=== PATIENT | female | born 1975 | race Hispanic/Latino ===

== ENCOUNTER 2018-09-10 10:37 | Inpatient (IN) | payer OTHER ==
[2018-09-10 08:46] VITALS: BMI 31.9
[2018-09-10] MEDS ORDERED: Midazolam 2 MG/2 ML VIAL ONE (11:43)
[2018-09-10] MEDS ORDERED: Amiodarone 150mg/3 ml vial ONE (11:46)
[2018-09-10] MEDS ORDERED: Morphine 4 MG/ML VIAL ONE (12:10)
[2018-09-10] MEDS ORDERED: Iodixanol 320 MG/ML 100 ML BOTTLE IV ONE (12:14)
[2018-09-10] MEDS ORDERED: Eptifibatide 20 mg/10mL Inj IVP ONE (12:17)
--- NOTE | 2018-09-10 13:54 | CP.PCM.CON ---
History of Present Illness - History of Present Illness History of Present Illness: 42 y/o female with PMHx OF renal transplant, HTN, hypercholesterolemia, h/o MTHFR gene mutation presents to the ED with c/o chest pain associated with nausea/vomitting. Patient was taken to laborer cement gun placing for PCI s/p EARLE stent placement. Please see cath report for PCI/contrast use. Post cath, patient transferred to ICU for observation. Patient is chest pain free with no nausea/vomitting. Review of Systems - Review of Systems All systems: reviewed and no additional remarkable complaints except Past Patient History - Past Social History Smoking Status: Never Smoked - CARDIAC Hx Hypertension: Yes - RENAL Other/Comment: kidney transplant - PSYCHIATRIC Hx Substance Use: No - SURGICAL HISTORY Hx Tonsillectomy: Yes - ANESTHESIA Hx Anesthesia: Yes Hx Anesthesia Reactions: No Meds Allergies/Adverse Reactions: Allergies Allergy/AdvReac Type Severity Reaction Status Date / Time ampicillin AdvReac VOMITING Verified 02/26/18 21:48 nitroglycerin AdvReac FEVER Verified 02/26/18 21:48 [From Nitroglyn] - Medications Medications: Current Medications Acetylcysteine (Acetylcysteine 20%) 1,200 ml PO Q12H [facility] Stop: 09/12/18 02:01 Atovaquone (Mepron) 1,500 mg PO DAILY [facility]; Protocol Carvedilol (Coreg) 25 mg PO BID [facility] Eptifibatide (Integrilin) 75 mg in 100 mls @ 6.749 mls/hr IV .[id number] [facility] Stop: 09/11/18 07:01 Sodium Chloride (Sodium Chloride 0.9%) 1,000 mls @ 100 mls/hr IV .Q10H [facility] Losartan Potassium (Cozaar) 50 mg PO BID [facility] Mycophenolate Sodium (Myfortic Dr) 720 mg PO BID [facility] Pantoprazole Sodium (Protonix Ec Tab) 40 mg PO DAILY [facility] Prednisone (Prednisone) 5 mg PO DAILY [facility] Rosuvastatin Calcium (Crestor) 20 mg PO HS [facility] Sertraline HCl (Zoloft) 12.5 mg PO DAILY [facility] Tacrolimus (Prograf) 1 mg PO BID [facility] Physical Exam - Head Exam Head Exam: ATRAUMATIC, NORMAL INSPECTION - Eye Exam Eye Exam: EOMI Pupil Exam: PERRL - ENT Exam ENT Exam: Mucous Membranes Moist - Respiratory Exam Respiratory Exam: Clear to Auscultation Bilateral, NORMAL BREATHING PATTERN - Cardiovascular Exam Cardiovascular Exam: REGULAR RHYTHM, +S1, +S2 - GI/Abdominal Exam GI & Abdominal Exam: Normal Bowel Sounds, Soft. absent: Tenderness - Extremities Exam Extremities exam: Positive for: normal inspection. Negative for: pedal edema Results - Labs Result Diagrams: 09/11/18 06:05 09/11/18 06:05 Assessment & Plan - Assessment and Plan (Free Text) Assessment: CAD/Myocardial infarction: s/p PCI, continue DAPT and IV integrilin -Renal transplant: restart home medicatoins -HTN: hold losartan for 24 hrs post IV contrast -continue prednisone/mycophenolate/prograf -continue protonix -oral muocmyst for prophylaxis for contrast induced nephropathy -IVF for hydration -HTN: use cardened IV for first 24 hours -EF ~45% - Date & Time Date: 09/10/18 Time: 13:56
[2018-09-10] MEDS ORDERED: Acetylcysteine 20% Inhal Soln (4ml) PO SCH (14:00)
[2018-09-10] MEDS: Eptifibatide 0.75 mg/ml 75 MG/100 ML BOTTLE IV SCH ×2 (14:00→22:29)
[2018-09-10] MEDS ORDERED: Alum-Mag Hydrox-Simethicone Susp (30 mL) PO ONE (14:20)
[2018-09-10] MEDS ORDERED: HYDROmorphone 0.5 mg/0.5 ml ISec IVP PRN (14:24)
[2018-09-10] MEDS ORDERED: Mycophenolic Acid DR 360 mg Tab PO ONE (14:30)
[2018-09-10] MEDS: Pantoprazole 40 mg EC Tab PO SCH (14:32)
[2018-09-10] MEDS: Atovaquone 750 mg/5 ml Susp UD PO SCH (14:35)
[2018-09-10] MEDS: Acetylcysteine 20% Inhal Soln (4ml) PO SCH (14:50)
[2018-09-10] MEDS: Sodium Chloride 0.9% 1,000 ML IV SCH (14:52)
[2018-09-10] MEDS ORDERED: Morphine 4 MG/ML VIAL IVP PRN (15:30)
[2018-09-10] MEDS: Mycophenolic Acid DR 360 mg Tab PO SCH (18:06)
--- NOTE | 2018-09-10 18:50 | CP.PCM.HP ---
Past Patient History - Past Social History Smoking Status: Never Smoked - CARDIAC Hx Hypertension: Yes - RENAL Other/Comment: kidney transplant - PSYCHIATRIC Hx Substance Use: No - SURGICAL HISTORY Hx Tonsillectomy: Yes - ANESTHESIA Hx Anesthesia: Yes Hx Anesthesia Reactions: No Meds Allergies/Adverse Reactions: Allergies Allergy/AdvReac Type Severity Reaction Status Date / Time ampicillin AdvReac VOMITING Verified 02/26/18 21:48 nitroglycerin AdvReac FEVER Verified 02/26/18 21:48 [From Nitroglyn] Physical Exam - Constitutional Appears: Well - Head Exam Head Exam: ATRAUMATIC, NORMAL INSPECTION, NORMOCEPHALIC - Eye Exam Eye Exam: EOMI, Normal appearance, PERRL Pupil Exam: NORMAL ACCOMODATION, PERRL - ENT Exam ENT Exam: Mucous Membranes Moist, Normal Exam - Neck Exam Neck exam: Positive for: Normal Inspection - Respiratory Exam Respiratory Exam: Decreased Breath Sounds - Cardiovascular Exam Cardiovascular Exam: REGULAR RHYTHM, +S1, +S2 - GI/Abdominal Exam GI & Abdominal Exam: Diminished Bowel Sounds, Soft - Rectal Exam Rectal Exam: Deferred Results - Vital Signs Recent Vital Signs: Last Vital Signs Temp 98.2 F 09/10/18 16:00 Pulse Resp BP 149/97 H 09/10/18 18:04 Pulse Ox 100 09/10/18 13:25 - Labs Labs: Laboratory Results - last 24 hr 09/10/18 15:21 Total Creatine Kinase 4596 H CK-MB (Mass) 142 H Troponin I 162.0000 H*
[2018-09-10] MEDS ORDERED: Labetalol 25mg/5ml Syringe IVP STA (19:07)
[2018-09-10] MEDS ORDERED: Labetalol 5mg/ml (4ml) IVP STA (19:28)
[2018-09-10] MEDS: niCARdipine IV 25 MG in Sodium Chloride 0.9% 240 ML IV PRN (20:26)
[2018-09-11] MEDS ORDERED: Alum-Mag Hydrox-Simethicone Susp (30 mL) PO STA (01:08)
[2018-09-11] MEDS: Sodium Chloride 0.9% 1,000 ML IV SCH ×3 (01:16→10:27)
[2018-09-11] MEDS: niCARdipine IV 25 MG in Sodium Chloride 0.9% 240 ML IV PRN (01:20)
[2018-09-11] MEDS: Acetylcysteine 20% Inhal Soln (4ml) PO SCH ×2 (02:45→14:23)
[2018-09-11] MEDS: Eptifibatide 0.75 mg/ml 75 MG/100 ML BOTTLE IV SCH (04:00)
[2018-09-11 06:10] LABS: BASO # 0.1 K/uL (0.0-0.2); BASO % 0.4 % (0.0-2.0); EOS % 0.1 % (0.0-4.0); LYMPH % 6.4 % (20.0-40.0); MEAN CELL VOLUME 87.4 fL (81.0-99.0); MEAN CORPUSCULAR HEMOGLOBIN 29.6 pg (27.0-31.0); MEAN CORPUSCULAR HGB CONC 33.9 g/dL (33.0-37.0); MEAN PLATELET VOLUME 8.1 fL (7.2-11.7); MONO % 6.8 % (0.0-10.0); NEUT # 13.2 K/uL (1.8-7.0); NEUT % 86.3 % (50.0-75.0); PLATELET COUNT 306 K/uL (130-400); RBC 3.72 Mil/uL (3.80-5.20); RED CELL DISTRIBUTION WIDTH 13.8 % (11.5-14.5); WHITE BLOOD COUNT 15.3 K/uL (4.8-10.8)
[2018-09-11 06:36] LABS: ALB/GLOB RATIO 1.4 (1.0-2.1); ALBUMIN 3.4 g/dL (3.5-5.0); ALT/SGPT 63 U/L (9-52); AST/SGOT 379 U/L (14-36); BLOOD UREA NITROGEN 13 mg/dL (7-17); CALCIUM 7.2 mg/dl (8.6-10.4); GFR NON-AFRICAN AMERICAN > 60
[2018-09-11] MEDS: Magnesium Sulfate 1 gm in D5W 1 GM/100 ML BAG IVPB SCH ×2 (07:58→08:38)
[2018-09-11] MEDS: Pantoprazole 40 mg EC Tab PO SCH ×2 (07:59→10:01)
[2018-09-11 08:15] LABS: BANDS 1 % (0-2); LYMPHOCYTE 6 % (20-40); MONOCYTE 8 % (0-10); NEUTROPHIL 85 % (50-75); TOTAL CELLS COUNTED 100
[2018-09-11 08:16] LABS: ANISOCYTOSIS SLIGHT; HYPOCHROMIC SLIGHT; PLATELET ESTIMATE NORMAL (NORMAL); POLYCHROMIC SLIGHT
[2018-09-11 08:17] LABS: TOXIC GRANULATION PRESENT
[2018-09-11] MEDS ORDERED: SERTRALINE 12.5 MG PO SCH (10:00)
[2018-09-11] MEDS: Atovaquone 750 mg/5 ml Susp UD PO SCH (10:02)
[2018-09-11] MEDS: Mycophenolic Acid DR 360 mg Tab PO SCH ×2 (10:03→18:13)
--- NOTE | 2018-09-11 10:26 | CP.PCM.PN ---
Subjective - Date & Time of Evaluation Date of Evaluation: 09/11/18 Time of Evaluation: 10:25 - Subjective Subjective: Patient admitted to ICU post PCI Objective - Vital Signs/Intake and Output Vital Signs (last 24 hours): Temp Pulse Resp BP Pulse Ox 98.8 F 91 H 23 116/79 98 09/11/18 06:00 09/11/18 07:00 09/11/18 07:00 09/11/18 07:59 09/11/18 07:00 Intake and Output: 09/11/18 09/11/18 06:59 18:59 Intake Total 2634 107 Output Total 1150 0 Balance 1484 107 - Medications Medications: Current Medications Acetylcysteine (Acetylcysteine 20%) 6 ml PO Q12H [facility] Stop: 09/12/18 02:46 Last Admin: 09/11/18 02:45 Dose: 6 ml Atovaquone (Mepron) 1,500 mg PO DAILY [facility]; Protocol Last Admin: 09/11/18 10:02 Dose: 1,500 mg Carvedilol (Coreg) 25 mg PO BID [facility] Last Admin: 09/11/18 10:02 Dose: Not Given Enoxaparin Sodium (Lovenox) 40 mg SC DAILY [facility] Sodium Chloride (Sodium Chloride 0.9%) 1,000 mls @ 50 mls/hr IV .Q20H [facility] Losartan Potassium (Cozaar) 50 mg PO BID [facility] Last Admin: 09/11/18 10:04 Dose: 50 mg Mycophenolate Sodium (Myfortic Dr) 720 mg PO BID [facility] Last Admin: 09/11/18 10:03 Dose: 720 mg Pantoprazole Sodium (Protonix Ec Tab) 40 mg PO DAILY [facility] Last Admin: 09/11/18 10:01 Dose: Not Given Prednisone (Prednisone Tab) 5 mg PO DAILY [facility] Last Admin: 09/11/18 10:03 Dose: 5 mg Rosuvastatin Calcium (Crestor) 20 mg PO HS [facility] Last Admin: 09/10/18 22:20 Dose: 20 mg Sertraline HCl (Zoloft) 12.5 mg PO DAILY [facility] Tacrolimus (Prograf Cap) 1 mg PO Q12 [facility] Last Admin: 09/11/18 10:03 Dose: 1 mg Ticagrelor (Brilinta) 90 mg PO BID [facility] Last Admin: 09/11/18 10:03 Dose: 90 mg - Labs Labs: 09/11/18 06:05 09/11/18 06:05 - Head Exam Head Exam: ATRAUMATIC, NORMAL INSPECTION - Cardiovascular Exam Cardiovascular Exam: REGULAR RHYTHM, +S1, +S2 - GI/Abdominal Exam GI & Abdominal Exam: Normal Bowel Sounds - Extremities Exam Extremities Exam: Full ROM, Normal Inspection - Neurological Exam Neurological Exam: Alert, Awake, CN II-XII Intact Assessment and Plan - Assessment and Plan (Free Text) Assessment: CAD/Myocardial infarction: s/p PCI, continue DAPT, statin and AV donny sheldon -Renal transplant: restart home medicatoins -HTN: restart losartan -continue prednisone/mycophenolate/prograf -continue protonix -oral muocmyst for prophylaxis for contrast induced nephropathy with IVF -echo pending -Patient remains hemodynamically stable
[2018-09-11] MEDS: Enoxaparin 40 mg Syringe SC SCH (10:27)
[2018-09-11] MEDS ORDERED: Alum-Mag Hydrox-Simethicone Susp (30 mL) PO PRN (10:51)
--- NOTE | 2018-09-11 19:37 | CP.PCM.PN ---
Subjective - Date & Time of Evaluation Date of Evaluation: 09/11/18 Time of Evaluation: 12:00 - Subjective Subjective: clinically same Objective - Vital Signs/Intake and Output Vital Signs (last 24 hours): Temp Pulse Resp BP Pulse Ox 98.8 F 95 H 13 116/78 99 09/11/18 16:00 09/11/18 18:15 09/11/18 18:15 09/11/18 18:13 09/11/18 18:15 Intake and Output: 09/11/18 09/12/18 18:59 06:59 Intake Total 1657 50 Output Total 950 300 Balance 707 -250 - Medications Medications: Current Medications Acetylcysteine (Acetylcysteine 20%) 6 ml PO Q12H [facility] Stop: 09/12/18 02:46 Last Admin: 09/11/18 14:23 Dose: 6 ml Al Hydrox/Mg Hydrox/Simethicone (Maalox Plus 30 Ml) 30 ml PO Q6H PRN PRN Reason: Indigestion / Heartburn Carvedilol (Coreg) 25 mg PO BID [facility] Last Admin: 09/11/18 18:13 Dose: 25 mg Enoxaparin Sodium (Lovenox) 40 mg SC DAILY [facility] Last Admin: 09/11/18 10:27 Dose: 40 mg Sodium Chloride (Sodium Chloride 0.9%) 1,000 mls @ 50 mls/hr IV .Q20H [facility] Last Admin: 09/11/18 10:27 Dose: 50 mls/hr Losartan Potassium (Cozaar) 50 mg PO BID [facility] Last Admin: 09/11/18 10:04 Dose: 50 mg Mycophenolate Sodium (Myfortic Dr) 720 mg PO BID [facility] Last Admin: 09/11/18 18:13 Dose: 720 mg Pantoprazole Sodium (Protonix Ec Tab) 40 mg PO DAILY [facility] Last Admin: 09/11/18 10:01 Dose: Not Given Prednisone (Prednisone Tab) 5 mg PO DAILY [facility] Last Admin: 09/11/18 10:03 Dose: 5 mg Rosuvastatin Calcium (Crestor) 20 mg PO HS [facility] Last Admin: 09/10/18 22:20 Dose: 20 mg Sertraline HCl (Zoloft) 12.5 mg PO HS [facility] Tacrolimus (Prograf Cap) 1 mg PO Q12 [facility] Last Admin: 09/11/18 10:03 Dose: 1 mg Ticagrelor (Brilinta) 90 mg PO BID [facility] Last Admin: 09/11/18 18:13 Dose: 90 mg - Labs Labs: 09/11/18 06:05 09/11/18 06:05 - Constitutional Appears: Well - Head Exam Head Exam: ATRAUMATIC, NORMAL INSPECTION, NORMOCEPHALIC - Eye Exam Eye Exam: EOMI, Normal appearance, PERRL Pupil Exam: NORMAL ACCOMODATION, PERRL - ENT Exam ENT Exam: Mucous Membranes Moist, Normal Exam - Neck Exam Neck Exam: Full ROM, Normal Inspection. absent: Lymphadenopathy - Respiratory Exam Respiratory Exam: Decreased Breath Sounds - Cardiovascular Exam Cardiovascular Exam: REGULAR RHYTHM, +S1, +S2 - GI/Abdominal Exam GI & Abdominal Exam: Soft, Diminished Bowel Sounds - Rectal Exam Rectal Exam: Deferred
[2018-09-11] MEDS: SERTRALINE 12.5 MG PO SCH (21:10)
[2018-09-12] MEDS: Acetylcysteine 20% Inhal Soln (4ml) PO SCH (02:17)
[2018-09-12 06:28] LABS: BASO % 0.2 % (0.0-2.0); EOS % 0.3 % (0.0-4.0); HEMOGLOBIN 9.6 g/dL (11.0-16.0); LYMPH # 1.1 K/uL (1.0-4.3); LYMPH % 11.3 % (20.0-40.0); MEAN CELL VOLUME 86.4 fL (81.0-99.0); MEAN CORPUSCULAR HEMOGLOBIN 29.8 pg (27.0-31.0); MEAN CORPUSCULAR HGB CONC 34.5 g/dL (33.0-37.0); MEAN PLATELET VOLUME 8.1 fL (7.2-11.7); MONO # 0.9 K/uL (0.0-0.8); MONO % 8.7 % (0.0-10.0); NEUT % 79.5 % (50.0-75.0); RBC 3.23 Mil/uL (3.80-5.20); RED CELL DISTRIBUTION WIDTH 14.4 % (11.5-14.5); WHITE BLOOD COUNT 10.1 K/uL (4.8-10.8)
[2018-09-12] MEDS: Sodium Chloride 0.9% 1,000 ML IV SCH (06:30)
[2018-09-12 06:31] LABS: ALB/GLOB RATIO 1.4 (1.0-2.1); ALBUMIN 3.1 g/dL (3.5-5.0); ALT/SGPT 44 U/L (9-52); AST/SGOT 140 U/L (14-36); BLOOD UREA NITROGEN 14 mg/dL (7-17); CALCIUM 7.6 mg/dl (8.6-10.4); GFR NON-AFRICAN AMERICAN > 60
[2018-09-12] MEDS: Pantoprazole 40 mg EC Tab PO SCH (09:19)
[2018-09-12] MEDS: Enoxaparin 40 mg Syringe SC SCH (09:20)
[2018-09-12] MEDS: Mycophenolic Acid DR 360 mg Tab PO SCH ×2 (09:20→17:02)
--- NOTE | 2018-09-12 12:37 | CP.PCM.PN ---
Subjective - Date & Time of Evaluation Date of Evaluation: 09/12/18 Time of Evaluation: 13:00 - Subjective Subjective: clinically same Objective - Vital Signs/Intake and Output Vital Signs (last 24 hours): Temp Pulse Resp BP Pulse Ox 97.7 F 95 H 15 112/67 98 09/12/18 08:00 09/12/18 10:08 09/12/18 10:08 09/12/18 09:21 09/12/18 09:20 Intake and Output: 09/12/18 09/12/18 06:59 18:59 Intake Total 1020 400 Output Total 1200 500 Balance -180 -100 - Medications Medications: Current Medications Al Hydrox/Mg Hydrox/Simethicone (Maalox Plus 30 Ml) 30 ml PO Q6H PRN PRN Reason: Indigestion / Heartburn Carvedilol (Coreg) 25 mg PO BID [facility] Last Admin: 09/12/18 09:21 Dose: 25 mg Enoxaparin Sodium (Lovenox) 40 mg SC DAILY [facility] Last Admin: 09/12/18 09:20 Dose: 40 mg Sodium Chloride (Sodium Chloride 0.9%) 1,000 mls @ 50 mls/hr IV .Q20H [facility] Last Admin: 09/12/18 06:30 Dose: Not Given Losartan Potassium (Cozaar) 50 mg PO BID [facility] Last Admin: 09/12/18 09:21 Dose: 50 mg Mycophenolate Sodium (Myfortic Dr) 720 mg PO BID [facility] Last Admin: 09/12/18 09:20 Dose: 720 mg Pantoprazole Sodium (Protonix Ec Tab) 40 mg PO DAILY [facility] Last Admin: 09/12/18 09:19 Dose: 40 mg Prednisone (Prednisone Tab) 5 mg PO DAILY [facility] Last Admin: 09/12/18 09:22 Dose: 5 mg Rosuvastatin Calcium (Crestor) 20 mg PO HS [facility] Last Admin: 09/11/18 21:10 Dose: 20 mg Sertraline HCl (Zoloft) 12.5 mg PO HS [facility] Last Admin: 09/11/18 21:10 Dose: 12.5 mg Tacrolimus (Prograf Cap) 1 mg PO Q12 [facility] Last Admin: 09/12/18 09:22 Dose: 1 mg Ticagrelor (Brilinta) 90 mg PO BID [facility] Last Admin: 09/12/18 09:21 Dose: 90 mg - Labs Labs: 09/12/18 06:10 09/12/18 06:09 - Constitutional Appears: Well - Head Exam Head Exam: ATRAUMATIC, NORMAL INSPECTION, NORMOCEPHALIC - Eye Exam Eye Exam: EOMI, Normal appearance, PERRL Pupil Exam: NORMAL ACCOMODATION, PERRL - ENT Exam ENT Exam: Mucous Membranes Moist, Normal Exam - Neck Exam Neck Exam: Full ROM, Normal Inspection. absent: Lymphadenopathy - Respiratory Exam Respiratory Exam: Decreased Breath Sounds - Cardiovascular Exam Cardiovascular Exam: REGULAR RHYTHM, +S1, +S2 - GI/Abdominal Exam GI & Abdominal Exam: Soft, Diminished Bowel Sounds - Rectal Exam Rectal Exam: Deferred
--- NOTE | 2018-09-12 13:27 | CARD ---
APPROVED REPORT Date of service: 09/10/2018 EKG Measurement Heart [id number] <Conclusion> Normal sinus rhythm ST elevation, consider lateral injury or acute infarct ACUTE MT / STEMI Abnormal ECG
--- NOTE | 2018-09-12 13:43 | CP.PCM.CON ---
History of Present Illness - History of Present Illness History of Present Illness: 42 y/o female with PMHx OF renal transplant, HTN, hypercholesterolemia, h/o MTHFR gene mutation presents to the ED with c/o chest pain associated with nausea/vomitting. Patient was taken to operations label clerk for PCI s/p EARLE stent placement. Please see cath report for PCI/contrast use. Post cath, patient transferred to ICU for observation. Patient is chest pain free with no nausea/vomitting. c/o feeling "winded at times" good uop DDRtx 2008 [facility], baseline creat < 1. hx of HUS, second renal transplant home transplant meds- myfortic prednisone and tacrolimus Review of Systems - Review of Systems All systems: reviewed and no additional remarkable complaints except (as per hpi) Past Patient History - Past Medical History & Family History Past Medical History?: Yes - Past Social History Smoking Status: Never Smoked - CARDIAC Hx Hypertension: Yes - PULMONARY Hx Respiratory Disorders: No - NEUROLOGICAL Hx Neurological Disorder: No - HEENT Hx HEENT Problems: No - RENAL Other/Comment: kidney transplant - ENDOCRINE/METABOLIC Other/Comment: HX.PARATHYROIDECTOMY - HEMATOLOGICAL/ONCOLOGICAL Hx Blood Disorders: Yes Other/Comment: HX.L LEG DVT - INTEGUMENTARY Hx Dermatological Problems: No - MUSCULOSKELETAL/RHEUMATOLOGICAL Hx Musculoskeletal Disorders: No Hx Falls: No - GASTROINTESTINAL Hx Gastrointestinal Disorders: No - GENITOURINARY/GYNECOLOGICAL Hx Genitourinary Disorders: No - PSYCHIATRIC Hx Substance Use: No - SURGICAL HISTORY Hx Tonsillectomy: Yes - ANESTHESIA Hx Anesthesia: Yes Hx Anesthesia Reactions: No Meds Allergies/Adverse Reactions: Allergies Allergy/AdvReac Type Severity Reaction Status Date / Time ampicillin AdvReac VOMITING Verified 02/26/18 21:48 nitroglycerin AdvReac FEVER Verified 02/26/18 21:48 [From Nitroglyn] - Medications Medications: Current Medications Al Hydrox/Mg Hydrox/Simethicone (Maalox Plus 30 Ml) 30 ml PO Q6H PRN PRN Reason: Indigestion / Heartburn Carvedilol (Coreg) 25 mg PO BID [facility] Last Admin: 09/12/18 09:21 Dose: 25 mg Enoxaparin Sodium (Lovenox) 40 mg SC DAILY [facility] Last Admin: 09/12/18 09:20 Dose: 40 mg Sodium Chloride (Sodium Chloride 0.9%) 1,000 mls @ 50 mls/hr IV .Q20H [facility] Last Admin: 09/12/18 06:30 Dose: Not Given Mycophenolate Sodium (Myfortic Dr) 720 mg PO BID [facility] Last Admin: 09/12/18 09:20 Dose: 720 mg Pantoprazole Sodium (Protonix Ec Tab) 40 mg PO DAILY [facility] Last Admin: 09/12/18 09:19 Dose: 40 mg Prednisone (Prednisone Tab) 5 mg PO DAILY [facility] Last Admin: 09/12/18 09:22 Dose: 5 mg Rosuvastatin Calcium (Crestor) 20 mg PO HS [facility] Last Admin: 09/11/18 21:10 Dose: 20 mg Sertraline HCl (Zoloft) 12.5 mg PO HS [facility] Last Admin: 09/11/18 21:10 Dose: 12.5 mg Tacrolimus (Prograf Cap) 1 mg PO Q12 [facility] Last Admin: 09/12/18 09:22 Dose: 1 mg Ticagrelor (Brilinta) 90 mg PO BID [facility] Last Admin: 09/12/18 09:21 Dose: 90 mg Physical Exam - Constitutional Appears: Non-toxic, No Acute Distress - Head Exam Head Exam: NORMAL INSPECTION, NORMOCEPHALIC - Eye Exam Eye Exam: Normal appearance, PERRL - ENT Exam ENT Exam: Mucous Membranes Moist, Normal Exam - Neck Exam Neck exam: Positive for: Normal Inspection - Respiratory Exam Respiratory Exam: Clear to Auscultation Bilateral, NORMAL BREATHING PATTERN - Cardiovascular Exam Cardiovascular Exam: REGULAR RHYTHM, RRR - GI/Abdominal Exam GI & Abdominal Exam: Normal Bowel Sounds, Soft - Extremities Exam Extremities exam: Positive for: full ROM, normal inspection - Neurological Exam Neurological exam: Alert, Oriented x3 - Psychiatric Exam Psychiatric exam: Normal Affect, Normal Mood - Skin Skin Exam: Dry, Intact Results - Vital Signs Recent Vital Signs: Last Vital Signs Temp 97.7 F 09/12/18 08:00 Pulse 95 H 09/12/18 10:08 Resp 15 09/12/18 10:08 BP 112/67 09/12/18 09:21 Pulse Ox 98 09/12/18 09:20 - Labs Result Diagrams: 09/12/18 06:10 09/12/18 06:09 Labs: Laboratory Results - last 24 hr 09/12/18 09/12/18 06:09 06:10 WBC 10.1 RBC 3.23 L Hgb 9.6 L Hct 27.9 L MCV 86.4 MCH 29.8 MCHC 34.5 RDW 14.4 Plt Count 261 MPV 8.1 Neut % (Auto) 79.5 H Lymph % (Auto) 11.3 L [place] % (Auto) 8.7 Eos % (Auto) 0.3 Baso % (Auto) 0.2 Neut # (Auto) 8.0 H Lymph # (Auto) 1.1 [place] # (Auto) 0.9 H Eos # (Auto) 0.0 Baso # (Auto) 0.0 Sodium 135 Potassium 3.6 Chloride 102 Carbon Dioxide 27 Anion Gap 9 L BUN 14 Creatinine 1.0 Est GFR ( Amer) > 60 Est GFR (Non-Af Amer) > 60 Random Glucose 159 H D Calcium 7.6 L Phosphorus 2.4 L Magnesium 2.5 H Total Bilirubin 0.8 AST 140 H D ALT 44 Alkaline Phosphatase 60 Total Protein 5.3 L Albumin 3.1 L Globulin 2.2 Albumin/Globulin Ratio 1.4 Assessment & Plan (1) Renal transplant recipient Status: Acute (2) Hypertension Status: Acute (3) STEMI (ST elevation myocardial infarction) Status: Acute - Assessment and Plan (Free Text) Assessment: renal function stable hold off losartan for another day and then may restart if renal function stable maintain immunosuppression gentle iv fluids check tacrolimus level cardiac management
--- NOTE | 2018-09-12 16:32 | CARD ---
APPROVED REPORT Date of service: 09/12/2018 EXAM: Two-dimensional and M-mode echocardiogram with Doppler and color Doppler. INDICATION Pericardial Effusion RISK FACTORS Hypertension 2D DIMENSIONS IVSd1.5 (0.7-1.1cm)LVDd3.4 (3.9-5.9cm) PWd1.3 (0.7-1.1cm)LA [id number] (18-58mL) LVDs1.9 (2.5-4.0cm)FS (%) 44.4 % LVEF (%)76.8 (>50%)LVEF (Martins's)70.11 % M-Mode DIMENSIONS Left Atrium (MM)3.38 (2.5-4.0cm)IVSd1.20 (0.7-1.1cm) Aortic Root3.15 (2.2-3.7cm)LVDd4.37 (4.0-5.6cm) Aortic Cusp Exc.1.72 (1.5-2.0cm)PWd1.17 (0.7-1.1cm) FS (%) 41 %LVDs2.57 (2.0-3.8cm) LVEF (%)72 (>50%) Mitral Valve MV E Tvgboacc17.9cm/sMV A Wmqkzsqx49.1cm/sE/A ratio0.8 TDI Lateral E' Peak V6.80cm/sMedial E' Peak V5.06cm/sE/Lateral E'9.7 E/Medial E'13.0 Tricuspid Valve TR Peak [id number]/sTR Peak [id number] LEFT VENTRICLE The left ventricle is normal size. There is mild to moderate concentric left ventricular hypertrophy. The left ventricular function is normal. The left ventricular ejection fraction is within the normal range. There is normal LV segmental wall motion. Transmitral Doppler flow pattern is Grade I-abnormal relaxation pattern. RIGHT VENTRICLE The right ventricle is normal size. There is normal right ventricular wall thickness. The right ventricular systolic function is normal. ATRIA The left atrium size is normal. The right atrium size is normal. AORTIC VALVE The aortic valve is normal in structure. No aortic regurgitation is present. There is no aortic valvular stenosis. MITRAL VALVE The mitral valve is normal in structure. There is no evidence of mitral valve prolapse. There is no mitral valve stenosis. Mitral regurgitation is trace. TRICUSPID VALVE The tricuspid valve is normal in structure. There is no tricuspid valve regurgitation noted. PULMONIC VALVE The pulmonary valve is normal in structure. There is no pulmonic valvular regurgitation. GREAT VESSELS The aortic root is normal in size. The IVC is normal in size and collapses >50% with inspiration. PERICARDIAL EFFUSION There is a trace pericardial effusion. <Conclusion> There is mild to moderate concentric left ventricular hypertrophy. The left ventricular function is normal. The left ventricular ejection fraction is within the normal range. There is normal LV segmental wall motion. Transmitral Doppler flow pattern is Grade I-abnormal relaxation pattern. There is a trace pericardial effusion.
[2018-09-12] MEDS: SERTRALINE 12.5 MG PO SCH (22:04)
--- NOTE | 2018-09-13 09:02 | CP.PCM.PN ---
Subjective - Date & Time of Evaluation Date of Evaluation: 09/13/18 Time of Evaluation: 09:00 - Subjective Subjective: seen and examined no complaints denies any cp/sob/dizziness/f/c/n/v/d no labs yet Objective - Vital Signs/Intake and Output Vital Signs (last 24 hours): Temp Pulse Resp BP Pulse Ox 98.6 F 88 20 109/70 100 09/13/18 08:00 09/13/18 08:00 09/13/18 08:00 09/13/18 08:00 09/13/18 08:00 Intake and Output: 09/13/18 09/13/18 06:59 18:59 Intake Total 480 Output Total 0 Balance 480 - Medications Medications: Current Medications Al Hydrox/Mg Hydrox/Simethicone (Maalox Plus 30 Ml) 30 ml PO Q6H PRN PRN Reason: Indigestion / Heartburn Carvedilol (Coreg) 25 mg PO BID [facility] Last Admin: 09/12/18 17:02 Dose: 25 mg Enoxaparin Sodium (Lovenox) 40 mg SC DAILY [facility] Last Admin: 09/12/18 09:20 Dose: 40 mg Sodium Chloride (Sodium Chloride 0.9%) 1,000 mls @ 50 mls/hr IV .Q20H [facility] Last Admin: 09/12/18 06:30 Dose: Not Given Mycophenolate Sodium (Myfortic Dr) 720 mg PO BID [facility] Last Admin: 09/12/18 17:02 Dose: 720 mg Pantoprazole Sodium (Protonix Ec Tab) 40 mg PO DAILY [facility] Last Admin: 09/12/18 09:19 Dose: 40 mg Prednisone (Prednisone Tab) 5 mg PO DAILY [facility] Last Admin: 09/12/18 09:22 Dose: 5 mg Rosuvastatin Calcium (Crestor) 20 mg PO HS [facility] Last Admin: 09/12/18 21:44 Dose: 20 mg Sertraline HCl (Zoloft) 12.5 mg PO HS [facility] Last Admin: 09/12/18 22:04 Dose: 12.5 mg Tacrolimus (Prograf Cap) 1 mg PO Q12 [facility] Last Admin: 09/12/18 21:42 Dose: 1 mg Ticagrelor (Brilinta) 90 mg PO BID [facility] Last Admin: 09/12/18 17:02 Dose: 90 mg - Labs Labs: 09/12/18 06:10 12/31/18 06:09 - Constitutional Appears: Non-toxic, No Acute Distress - Head Exam Head Exam: NORMAL INSPECTION - Eye Exam Eye Exam: Normal appearance Pupil Exam: PERRL - ENT Exam ENT Exam: Mucous Membranes Moist, Normal Exam - Neck Exam Neck Exam: Full ROM, Normal Inspection - Respiratory Exam Respiratory Exam: Clear to Ausculation Bilateral, NORMAL BREATHING PATTERN - Cardiovascular Exam Cardiovascular Exam: REGULAR RHYTHM, RRR - GI/Abdominal Exam GI & Abdominal Exam: Distended, Soft - Extremities Exam Extremities Exam: Full ROM, Normal Inspection - Back Exam Back Exam: NORMAL INSPECTION - Neurological Exam Neurological Exam: Alert, Awake, Oriented x3 - Psychiatric Exam Psychiatric exam: Normal Affect, Normal Mood - Skin Skin Exam: Intact, Normal Color Assessment and Plan (1) Renal transplant recipient Status: Acute (2) Hypertension Status: Acute (3) STEMI (ST elevation myocardial infarction) Status: Acute - Assessment and Plan (Free Text) Assessment: stable renal transplant STEMI s/p PCI
[2018-09-13] MEDS: Mycophenolic Acid DR 360 mg Tab PO SCH ×2 (09:42→17:22)
[2018-09-13] MEDS: Enoxaparin 40 mg Syringe SC SCH (09:42)
[2018-09-13] MEDS: Pantoprazole 40 mg EC Tab PO SCH (09:42)
--- NOTE | 2018-09-13 16:05 | CP.PCM.PN ---
Subjective - Date & Time of Evaluation Date of Evaluation: 09/13/18 Time of Evaluation: 11:30 - Subjective Subjective: clinically same Objective - Vital Signs/Intake and Output Vital Signs (last 24 hours): Temp Pulse Resp BP Pulse Ox 96.9 F L 86 17 114/80 100 09/13/18 12:00 09/13/18 12:00 09/13/18 12:00 09/13/18 12:00 09/13/18 12:00 Intake and Output: 09/13/18 09/13/18 06:59 18:59 Intake Total 480 440 Output Total 0 Balance 480 440 - Medications Medications: Current Medications Al Hydrox/Mg Hydrox/Simethicone (Maalox Plus 30 Ml) 30 ml PO Q6H PRN PRN Reason: Indigestion / Heartburn Carvedilol (Coreg) 25 mg PO BID [facility] Last Admin: 09/13/18 09:42 Dose: 25 mg Enoxaparin Sodium (Lovenox) 40 mg SC DAILY [facility] Last Admin: 09/13/18 09:42 Dose: 40 mg Sodium Chloride (Sodium Chloride 0.9%) 1,000 mls @ 50 mls/hr IV .Q20H [facility] Last Admin: 09/12/18 06:30 Dose: Not Given Mycophenolate Sodium (Myfortic Dr) 720 mg PO BID [facility] Last Admin: 09/13/18 09:42 Dose: 720 mg Pantoprazole Sodium (Protonix Ec Tab) 40 mg PO DAILY [facility] Last Admin: 09/13/18 09:42 Dose: 40 mg Prednisone (Prednisone Tab) 5 mg PO DAILY [facility] Last Admin: 09/13/18 09:42 Dose: 5 mg Rosuvastatin Calcium (Crestor) 20 mg PO HS [facility] Last Admin: 09/12/18 21:44 Dose: 20 mg Sertraline HCl (Zoloft) 12.5 mg PO HS [facility] Last Admin: 09/12/18 22:04 Dose: 12.5 mg Tacrolimus (Prograf Cap) 1 mg PO Q12 [facility] Last Admin: 09/13/18 09:42 Dose: 1 mg Ticagrelor (Brilinta) 90 mg PO BID [facility] Last Admin: 09/13/18 09:42 Dose: 90 mg - Labs Labs: 09/12/18 06:10 09/12/18 06:09
[2018-09-13 16:13] VITALS: RESP 18
--- NOTE | 2018-09-13 19:36 | CP.PCM.CON ---
History of Present Illness - History of Present Illness History of Present Illness: Consultation for s/p STEMI HPI: Patient is a pleasant 42-year-old female past medical history significant for hemolytic uremic syndrome causing her to have renal failure at the age of 22 initially was on peritoneal dialysis and subsequently had 2 renal transplant on immunosuppressant therapy who presented Wednesday morning with transfer from [place] as acute anterior lateral wall ST elevation ID she was emergently taken to the [facility] for emergent cardiac cath revealed 100% proximal LAD occlusion which was severely calcified vessel he had successful PTCA stenting with a drug- eluting stent recanalization of the vessel EF at the time of ID was about 20-25% which was secondary to acute ischemic stenting of the myocardium subsequently echocardiogram done showed ejection fraction improved and was essentially unremarkable normal to 5055% with mild anteroseptal hypokinesis troponins peaked at 180 and slightly charted to trend and creatinine remained stable tolerating her dual antiplatelet therapy center currently on carvedilol on hold on hold of losartan which is her home medications she is also on immunosuppression inclu ding chronic steroid therapy for the last 9 years on low-dose prednisone. Last hemoglobin A1c done by her primary care physician Dr. Makeda Cameron was 7.2. Review of Systems - Review of Systems Systems not reviewed;Unavailable: Acuity of Condition - Constitutional Constitutional: As Per HPI - EENT Eyes: As Per HPI Ears: As Per HPI Nose/Mouth/Throat: As Per HPI - Breasts Breasts: As Per HPI - Cardiovascular Cardiovascular: As Per HPI - Respiratory Respiratory: As Per HPI - Gastrointestinal Gastrointestinal: As Per HPI - Genitourinary Genitourinary: As Per HPI - Reproductive: Female Reproductive:Female: As Per HPI - Menstruation Menstruation: As Per HPI - Musculoskeletal Musculoskeletal: As Per HPI - Integumentary Integumentary: As Per HPI - Neurological Neurological: As Per HPI - Psychiatric Psychiatric: As Per HPI - Endocrine Endocrine: As Per HPI - Hematologic/Lymphatic Hematologic: As Per HPI Past Patient History - Past Medical History & Family History Past Medical History?: Yes - Past Social History Smoking Status: Never Smoked - CARDIAC Hx Hypertension: Yes - PULMONARY Hx Respiratory Disorders: No - NEUROLOGICAL Hx Neurological Disorder: No - HEENT Hx HEENT Problems: No - RENAL Other/Comment: kidney transplant - ENDOCRINE/METABOLIC Other/Comment: HX.PARATHYROIDECTOMY - HEMATOLOGICAL/ONCOLOGICAL Hx Blood Disorders: Yes Other/Comment: HX.L LEG DVT - INTEGUMENTARY Hx Dermatological Problems: No - MUSCULOSKELETAL/RHEUMATOLOGICAL Hx Musculoskeletal Disorders: No Hx Falls: No - GASTROINTESTINAL Hx Gastrointestinal Disorders: No - GENITOURINARY/GYNECOLOGICAL Hx Genitourinary Disorders: No - PSYCHIATRIC Hx Substance Use: No - SURGICAL HISTORY Hx Tonsillectomy: Yes - ANESTHESIA Hx Anesthesia: Yes Hx Anesthesia Reactions: No Meds Allergies/Adverse Reactions: Allergies Allergy/AdvReac Type Severity Reaction Status Date / Time ampicillin AdvReac VOMITING Verified 02/26/18 21:48 nitroglycerin AdvReac FEVER Verified 02/26/18 21:48 [From Nitroglyn] - Medications Medications: Current Medications Al Hydrox/Mg Hydrox/Simethicone (Maalox Plus 30 Ml) 30 ml PO Q6H PRN PRN Reason: Indigestion / Heartburn Carvedilol (Coreg) 25 mg PO BID [facility] Last Admin: 09/13/18 17:22 Dose: 25 mg Enoxaparin Sodium (Lovenox) 40 mg SC DAILY [facility] Last Admin: 09/13/18 09:42 Dose: 40 mg Sodium Chloride (Sodium Chloride 0.9%) 1,000 mls @ 50 mls/hr IV .Q20H [facility] Last Admin: 09/12/18 06:30 Dose: Not Given Mycophenolate Sodium (Myfortic Dr) 720 mg PO BID [facility] Last Admin: 09/13/18 17:22 Dose: 720 mg Pantoprazole Sodium (Protonix Ec Tab) 40 mg PO DAILY [facility] Last Admin: 09/13/18 09:42 Dose: 40 mg Potassium Phos/Sodium Phos (Neutra-Phos) 1 pkt PO TID [facility] Prednisone (Prednisone Tab) 5 mg PO DAILY [facility] Last Admin: 09/13/18 09:42 Dose: 5 mg Rosuvastatin Calcium (Crestor) 20 mg PO HS [facility] Last Admin: 09/12/18 21:44 Dose: 20 mg Sertraline HCl (Zoloft) 12.5 mg PO HS [facility] Last Admin: 09/12/18 22:04 Dose: 12.5 mg Tacrolimus (Prograf Cap) 1 mg PO Q12 [facility] Last Admin: 09/13/18 09:42 Dose: 1 mg Ticagrelor (Brilinta) 90 mg PO BID [facility] Last Admin: 09/13/18 17:22 Dose: 90 mg Physical Exam - Constitutional Appears: Well - Head Exam Head Exam: ATRAUMATIC, NORMAL INSPECTION, NORMOCEPHALIC - Eye Exam Eye Exam: EOMI, Normal appearance, PERRL Pupil Exam: NORMAL ACCOMODATION, PERRL - ENT Exam ENT Exam: Mucous Membranes Moist, Normal Exam - Neck Exam Neck exam: Positive for: Normal Inspection - Respiratory Exam Respiratory Exam: Clear to Auscultation Bilateral, NORMAL BREATHING PATTERN - Cardiovascular Exam Cardiovascular Exam: REGULAR RHYTHM - GI/Abdominal Exam GI & Abdominal Exam: Normal Bowel Sounds, Soft. absent: Tenderness - Extremities Exam Extremities exam: Positive for: normal inspection - Back Exam Back exam: NORMAL INSPECTION - Neurological Exam Neurological exam: Alert, CN II-XII Intact, Normal Gait, Oriented x3, Reflexes Normal - Psychiatric Exam Psychiatric exam: Normal Affect, Normal Mood - Skin Skin Exam: Dry, Intact, Normal Color, Warm Results - Vital Signs Recent Vital Signs: Last Vital Signs Temp 98.5 F 09/13/18 16:00 Pulse 82 09/13/18 16:21 Resp 18 09/13/18 16:00 BP 122/88 09/13/18 17:22 Pulse Ox 98 09/13/18 16:00 - Labs Result Diagrams: 09/12/18 06:10 09/12/18 06:09 Assessment & Plan (1) STEMI (ST elevation myocardial infarction) Assessment and Plan: s/p PCI of proximal LAD with EARLE x 2 echo dapt statins bb Icu Status: Acute (2) Hypertension Assessment and Plan: cont coreg Status: Acute (3) Renal transplant recipient Status: Acute
--- NOTE | 2018-09-13 20:28 | CP.PCM.PN ---
Subjective - Date & Time of Evaluation Date of Evaluation: 09/13/18 Time of Evaluation: 20:22 - Subjective Subjective: feeling back to normal Objective - Vital Signs/Intake and Output Vital Signs (last 24 hours): Temp Pulse Resp BP Pulse Ox 98.6 F 89 18 125/97 H 98 09/13/18 20:00 09/13/18 20:00 09/13/18 20:00 09/13/18 20:00 09/13/18 20:00 Intake and Output: 09/13/18 09/14/18 18:59 06:59 Intake Total 1440 Output Total 500 Balance 940 - Medications Medications: Current Medications Al Hydrox/Mg Hydrox/Simethicone (Maalox Plus 30 Ml) 30 ml PO Q6H PRN PRN Reason: Indigestion / Heartburn Carvedilol (Coreg) 25 mg PO BID [facility] Last Admin: 09/13/18 17:22 Dose: 25 mg Enoxaparin Sodium (Lovenox) 40 mg SC DAILY [facility] Last Admin: 09/13/18 09:42 Dose: 40 mg Sodium Chloride (Sodium Chloride 0.9%) 1,000 mls @ 50 mls/hr IV .Q20H [facility] Last Admin: 09/12/18 06:30 Dose: Not Given Mycophenolate Sodium (Myfortic Dr) 720 mg PO BID [facility] Last Admin: 09/13/18 17:22 Dose: 720 mg Pantoprazole Sodium (Protonix Ec Tab) 40 mg PO DAILY [facility] Last Admin: 09/13/18 09:42 Dose: 40 mg Potassium Phos/Sodium Phos (Neutra-Phos) 1 pkt PO TID [facility] Prednisone (Prednisone Tab) 5 mg PO DAILY [facility] Last Admin: 09/13/18 09:42 Dose: 5 mg Rosuvastatin Calcium (Crestor) 20 mg PO HS [facility] Last Admin: 09/12/18 21:44 Dose: 20 mg Sertraline HCl (Zoloft) 12.5 mg PO HS [facility] Last Admin: 09/12/18 22:04 Dose: 12.5 mg Tacrolimus (Prograf Cap) 1 mg PO Q12 [facility] Last Admin: 09/13/18 09:42 Dose: 1 mg Ticagrelor (Brilinta) 90 mg PO BID [facility] Last Admin: 09/13/18 17:22 Dose: 90 mg - Labs Labs: 09/12/18 06:10 09/12/18 06:09 - Constitutional Appears: Well - Head Exam Head Exam: ATRAUMATIC, NORMAL INSPECTION, NORMOCEPHALIC - Eye Exam Eye Exam: EOMI, Normal appearance, PERRL Pupil Exam: NORMAL ACCOMODATION, PERRL - ENT Exam ENT Exam: Mucous Membranes Moist, Normal Exam - Neck Exam Neck Exam: Full ROM, Normal Inspection. absent: Lymphadenopathy - Respiratory Exam Respiratory Exam: Clear to Ausculation Bilateral, NORMAL BREATHING PATTERN - Cardiovascular Exam Cardiovascular Exam: REGULAR RHYTHM, +S1, +S2, Murmur - GI/Abdominal Exam GI & Abdominal Exam: Soft, Normal Bowel Sounds. absent: Tenderness - Extremities Exam Extremities Exam: Full ROM, Normal Capillary Refill, Normal Inspection. absent: Joint Swelling, Pedal Edema - Back Exam Back Exam: NORMAL INSPECTION - Neurological Exam Neurological Exam: Alert, Awake, CN II-XII Intact, Normal Gait, Oriented x3 - Psychiatric Exam Psychiatric exam: Normal Affect, Normal Mood - Skin Skin Exam: Dry, Intact, Normal Color, Warm Assessment and Plan (1) STEMI (ST elevation myocardial infarction) Assessment & Plan: cont dapt x 12 months cont coreg restart losartan statins Status: Acute (2) Hypertension Assessment & Plan: cont coreg resume losartan Status: Acute (3) Renal transplant recipient Status: Acute (4) Dyslipidemia Assessment & Plan: check flp statins Status: Acute
[2018-09-13 21:02] LABS: BASO # 0.1 K/uL (0.0-0.2); BASO % 0.7 % (0.0-2.0); EOS # 0.1 K/uL (0.0-0.7); EOS % 0.7 % (0.0-4.0); HEMOGLOBIN 9.5 g/dL (11.0-16.0); LYMPH # 1.3 K/uL (1.0-4.3); LYMPH % 11.5 % (20.0-40.0); MEAN CORPUSCULAR HEMOGLOBIN 29.1 pg (27.0-31.0); MEAN CORPUSCULAR HGB CONC 32.8 g/dL (33.0-37.0); MONO # 0.8 K/uL (0.0-0.8); MONO % 6.7 % (0.0-10.0); NEUT # 9.2 K/uL (1.8-7.0); NEUT % 80.4 % (50.0-75.0); RBC 3.27 Mil/uL (3.80-5.20); RED CELL DISTRIBUTION WIDTH 13.9 % (11.5-14.5); WHITE BLOOD COUNT 11.5 K/uL (4.8-10.8)
[2018-09-13 21:24] LABS: MEAN CELL VOLUME 88.5 fL (81.0-99.0)
[2018-09-13] MEDS: SERTRALINE 12.5 MG PO SCH ×2 (21:53→21:55)
[2018-09-14 05:13] VITALS: TEMP 98.5; O2SAT 99
[2018-09-14 06:47] LABS: ALB/GLOB RATIO 1.4 (1.0-2.1); ALBUMIN 3.3 g/dL (3.5-5.0); ALT/SGPT 35 U/L (9-52); AST/SGOT 54 U/L (14-36); BLOOD UREA NITROGEN 18 mg/dL (7-17); CALCIUM 8.2 mg/dl (8.6-10.4); GFR NON-AFRICAN AMERICAN > 60
[2018-09-14] MEDS: Pantoprazole 40 mg EC Tab PO SCH (09:53)
[2018-09-14] MEDS: Enoxaparin 40 mg Syringe SC SCH (09:55)
[2018-09-14] MEDS: Mycophenolic Acid DR 360 mg Tab PO SCH ×2 (09:55→17:59)
[2018-09-14] MEDS ORDERED: Potassium & Sodium Phosphate PO SCH (10:00)
--- NOTE | 2018-09-14 13:00 | CP.PCM.PN ---
Subjective - Date & Time of Evaluation Date of Evaluation: 09/14/18 Time of Evaluation: 12:15 - Subjective Subjective: feeling fine denies any complaints Objective - Vital Signs/Intake and Output Vital Signs (last 24 hours): Temp Pulse Resp BP Pulse Ox 98.5 F 87 18 131/88 99 09/14/18 04:00 09/14/18 09:45 09/14/18 04:00 09/14/18 09:52 09/14/18 04:00 Intake and Output: 09/14/18 09/14/18 06:59 18:59 Intake Total 400 Balance 400 - Medications Medications: Current Medications Al Hydrox/Mg Hydrox/Simethicone (Maalox Plus 30 Ml) 30 ml PO Q6H PRN PRN Reason: Indigestion / Heartburn Carvedilol (Coreg) 25 mg PO BID [facility] Last Admin: 09/14/18 09:52 Dose: 25 mg Enoxaparin Sodium (Lovenox) 40 mg SC DAILY [facility] Last Admin: 09/14/18 09:55 Dose: 40 mg Mycophenolate Sodium (Myfortic Dr) 720 mg PO BID [facility] Last Admin: 09/14/18 09:55 Dose: 720 mg Pantoprazole Sodium (Protonix Ec Tab) 40 mg PO DAILY [facility] Last Admin: 09/14/18 09:53 Dose: 40 mg Potassium Phos/Sodium Phos (Neutra-Phos) 1 pkt PO TID [facility] Last Admin: 09/14/18 09:54 Dose: 1 pkt Prednisone (Prednisone Tab) 5 mg PO DAILY [facility] Last Admin: 09/14/18 09:54 Dose: 5 mg Rosuvastatin Calcium (Crestor) 20 mg PO HS [facility] Last Admin: 09/13/18 21:48 Dose: 20 mg Sertraline HCl (Zoloft) 12.5 mg PO HS [facility] Last Admin: 09/13/18 21:55 Dose: Not Given Tacrolimus (Prograf Cap) 1 mg PO Q12 [facility] Last Admin: 09/14/18 09:55 Dose: 1 mg Ticagrelor (Brilinta) 90 mg PO BID [facility] Last Admin: 09/14/18 09:54 Dose: 90 mg - Labs Labs: 09/13/18 20:59 09/14/18 05:55 - Constitutional Appears: Well - Head Exam Head Exam: ATRAUMATIC, NORMAL INSPECTION, NORMOCEPHALIC - Eye Exam Eye Exam: EOMI, Normal appearance, PERRL Pupil Exam: NORMAL ACCOMODATION, PERRL - ENT Exam ENT Exam: Mucous Membranes Moist, Normal Exam - Neck Exam Neck Exam: Full ROM, Normal Inspection. absent: Lymphadenopathy - Respiratory Exam Respiratory Exam: Clear to Ausculation Bilateral, NORMAL BREATHING PATTERN - Cardiovascular Exam Cardiovascular Exam: REGULAR RHYTHM, +S1, +S2. absent: Murmur - GI/Abdominal Exam GI & Abdominal Exam: Soft, Normal Bowel Sounds. absent: Tenderness - Extremities Exam Extremities Exam: Full ROM, Normal Capillary Refill, Normal Inspection. absent: Joint Swelling, Pedal Edema - Back Exam Back Exam: NORMAL INSPECTION - Neurological Exam Neurological Exam: Alert, Awake, CN II-XII Intact, Normal Gait, Oriented x3 - Psychiatric Exam Psychiatric exam: Normal Affect, Normal Mood - Skin Skin Exam: Dry, Intact, Normal Color, Warm Assessment and Plan (1) STEMI (ST elevation myocardial infarction) Assessment & Plan: cont dapt cont arb, bb cont statins f/u in 2 weeks stable to dc home Status: Acute (2) Hypertension Status: Acute (3) Renal transplant recipient Status: Acute (4) Dyslipidemia Status: Acute
--- NOTE | 2018-09-14 13:02 | CP.PCM.PN ---
Subjective - Date & Time of Evaluation Date of Evaluation: 09/14/18 Time of Evaluation: 12:51 - Subjective Subjective: still feels a little weak, dizzy notes mild edema declines diuretic for probable d/c today no chest pain no sob no change in urine no headache no fever no vomiting no rash no abdominal pain Objective - Vital Signs/Intake and Output Vital Signs (last 24 hours): Temp Pulse Resp BP Pulse Ox 98.5 F 87 18 131/88 99 09/14/18 04:00 09/14/18 09:45 09/14/18 04:00 09/14/18 09:52 09/14/18 04:00 Intake and Output: 09/14/18 09/14/18 06:59 18:59 Intake Total 400 Balance 400 - Medications Medications: Current Medications Al Hydrox/Mg Hydrox/Simethicone (Maalox Plus 30 Ml) 30 ml PO Q6H PRN PRN Reason: Indigestion / Heartburn Carvedilol (Coreg) 25 mg PO BID [facility] Last Admin: 09/14/18 09:52 Dose: 25 mg Enoxaparin Sodium (Lovenox) 40 mg SC DAILY [facility] Last Admin: 09/14/18 09:55 Dose: 40 mg Mycophenolate Sodium (Myfortic Dr) 720 mg PO BID [facility] Last Admin: 09/14/18 09:55 Dose: 720 mg Pantoprazole Sodium (Protonix Ec Tab) 40 mg PO DAILY [facility] Last Admin: 09/14/18 09:53 Dose: 40 mg Potassium Phos/Sodium Phos (Neutra-Phos) 1 pkt PO TID [facility] Last Admin: 09/14/18 09:54 Dose: 1 pkt Prednisone (Prednisone Tab) 5 mg PO DAILY [facility] Last Admin: 09/14/18 09:54 Dose: 5 mg Rosuvastatin Calcium (Crestor) 20 mg PO HS [facility] Last Admin: 09/13/18 21:48 Dose: 20 mg Sertraline HCl (Zoloft) 12.5 mg PO HS [facility] Last Admin: 09/13/18 21:55 Dose: Not Given Tacrolimus (Prograf Cap) 1 mg PO Q12 [facility] Last Admin: 09/14/18 09:55 Dose: 1 mg Ticagrelor (Brilinta) 90 mg PO BID [facility] Last Admin: 09/14/18 09:54 Dose: 90 mg - Labs Labs: 09/13/18 20:59 09/14/18 05:55 - Constitutional Appears: Non-toxic, No Acute Distress - Head Exam Head Exam: ATRAUMATIC, NORMAL INSPECTION - Eye Exam Eye Exam: EOMI - ENT Exam ENT Exam: Mucous Membranes Moist - Neck Exam Neck Exam: Full ROM. absent: Lymphadenopathy - Respiratory Exam Respiratory Exam: Clear to Ausculation Bilateral, NORMAL BREATHING PATTERN - Cardiovascular Exam Cardiovascular Exam: REGULAR RHYTHM. absent: Rubs - GI/Abdominal Exam GI & Abdominal Exam: Soft. absent: Tenderness, Rebound - Extremities Exam Extremities Exam: Full ROM, Pedal Edema - Neurological Exam Neurological Exam: Alert, Awake Assessment and Plan - Assessment and Plan (Free Text) Assessment: renal transplant, post acute mi and pci stable renal functioin maintain IS f/u with [facility] transplant team
[2018-09-14 13:55] VITALS: PULSE 83
--- NOTE | 2018-09-14 16:44 | CP.PCM.PN ---
Subjective - Date & Time of Evaluation Date of Evaluation: 09/14/18 Time of Evaluation: 16:44 - Subjective Subjective: PATIENT SEEN AND EXAMINED AT THE BEDSIDE Objective - Vital Signs/Intake and Output Vital Signs (last 24 hours): Temp Pulse Resp BP Pulse Ox 98.5 F 83 18 131/88 99 09/14/18 04:00 09/14/18 13:54 09/14/18 04:00 09/14/18 09:52 09/14/18 04:00 Intake and Output: 09/14/18 09/14/18 06:59 18:59 Intake Total 400 Balance 400 - Medications Medications: Current Medications Al Hydrox/Mg Hydrox/Simethicone (Maalox Plus 30 Ml) 30 ml PO Q6H PRN PRN Reason: Indigestion / Heartburn Carvedilol (Coreg) 25 mg PO BID [facility] Last Admin: 09/14/18 09:52 Dose: 25 mg Enoxaparin Sodium (Lovenox) 40 mg SC DAILY [facility] Last Admin: 09/14/18 09:55 Dose: 40 mg Mycophenolate Sodium (Myfortic Dr) 720 mg PO BID [facility] Last Admin: 09/14/18 09:55 Dose: 720 mg Pantoprazole Sodium (Protonix Ec Tab) 40 mg PO DAILY [facility] Last Admin: 09/14/18 09:53 Dose: 40 mg Potassium Phos/Sodium Phos (Neutra-Phos) 1 pkt PO TID [facility] Last Admin: 09/14/18 09:54 Dose: 1 pkt Prednisone (Prednisone Tab) 5 mg PO DAILY [facility] Last Admin: 09/14/18 09:54 Dose: 5 mg Rosuvastatin Calcium (Crestor) 20 mg PO HS [facility] Last Admin: 09/13/18 21:48 Dose: 20 mg Sertraline HCl (Zoloft) 12.5 mg PO HS [facility] Last Admin: 09/13/18 21:55 Dose: Not Given Tacrolimus (Prograf Cap) 1 mg PO Q12 [facility] Last Admin: 09/14/18 09:55 Dose: 1 mg Ticagrelor (Brilinta) 90 mg PO BID [facility] Last Admin: 09/14/18 09:54 Dose: 90 mg - Labs Labs: 09/13/18 20:59 09/14/18 05:55 Assessment and Plan - Assessment and Plan (Free Text) Assessment: FOLLOW UP WITH DR Beulah GUAJARDO IN HIS OFFICE ----CALL FOR APPOIINTMENT FOLLOW UP WITH DR ALFORD IN HIS OFFICE -----CALL FOR APPOINTMENT CONTINUE HOME MEDICATION NEW PRESCRIPTION GIVEN BRILINTA 90 MG PO BID [facility] TOLERATED CALL DR Beulah GUAJARDO OR GO TO THE EMERGENCY ROOM IF SYMPTOM RETURN OR WORSENING
[2018-09-14 17:57] VITALS: BP 123/80
--- NOTE | 2018-09-16 16:59 | CARD ---
APPROVED REPORT Date of service: 09/11/2018 EKG Measurement Heart [id number] CO 124P-1 [id number] <Conclusion> Age and gender specific ECG analysis Normal sinus rhythm Septal infarct, age undetermined Lateral injury pattern Prolonged QT ACUTE VA / STEMI Abnormal ECG
--- NOTE | 2018-09-24 04:12 | CARDCATH ---
PROCEDURE DATE: 09/10/2018 INDICATIONS: Adrianne is a pleasant 42-year-old female with history of end-stage renal disease, status post renal transplant secondary to possible hemolytic uremic syndrome, who presented as a transfer acute myocardial infarction from [facility] to [facility]. PROCEDURE PERFORMED: Emergent left heart catheterization with selective left and right coronary angiogram, selective PTCA stenting of proximal LAD 100% occlusion with deployment of drug-eluting stent. Regeneration from 100% noted with 0%MILADIS-3 flow, 6-English right femoral arterial access, Mynx closure device for hemostasis. ANGIOGRAPHIC FINDINGS: Left main is a large-sized vessel with bifurcation into LAD and circumflex. Left circumflex runs in the AV groove, have ostial 55% stenosis and gives off a small obtuse marginal branch, LAD proximal 100% occluded. RCA large-sized vessel gives off right PDA and PLV branches with a proximal 45% stenosis. TECHNIQUES INTERVENTION: After identified the occluded LAD, Whisper wire was used to negotiate with the lesion and was passed into the patient's LAD. The lesion was pre-dilated with 2.0 x 20 balloon, and subsequently stented with a 3.5 x 32 [place] drug-eluting stent with regeneration from 100% down to 0% technique MILADIS-3 flow. Final angiogram then showed regeneration down to 0% MILADIS-3 flow. IMPRESSION: Successful percutaneous transluminal coronary angiography stenting of proximal and mid left anterior descending with deployment of drug-eluting stent x1. Left ventricular ejection fraction was 40% to 45%. Successful percutaneous transluminal coronary angiography stenting of occluded proximal left anterior descending with deployment of drug-eluting stent. Mild ischemic cardiomyopathy with anterior apical hypokinesis. RECOMMENDATIONS: The patient needs to be transferred to the ICU, keep the patient on antiplatelet therapy, guideline-directed therapy for CAD. Gilberto Washington MD
== END 2018-09-14 18:11 | disposition home or self-care (01) | DRG 247 ==
LOC: C.9E 10:37 → UNDOADMIN 10:37 → C.9E 11:12 → C.9I 11:12 → C.9E 13:02 → C.9I 13:02 → UNDODISIN 09-14 18:11
PROVIDERS: ADMIT Internal Medicine Nephrology; ATTEND Internal Medicine Nephrology
PROC: 027035Z Dilation of Coronary Artery, One Artery with Two Drug-eluting Intraluminal Devices, Percutaneous Approach (ICD-10-PCS; principal; 2018-09-10)
DX: I21.09 ST elevation (STEMI) myocardial infarction involving other coronary artery of anterior wall (principal); Z94.0 Kidney transplant status; I10 Essential (primary) hypertension; E78.5 Hyperlipidemia, unspecified; Z86.718 Personal history of other venous thrombosis and embolism; I25.10 Atherosclerotic heart disease of native coronary artery without angina pectoris